=== PATIENT | female | born 1945 | race Caucasian/White ===

== ENCOUNTER → 2018-01-10 | Outpatient (CLI) | payer MEDICARE, BC ==
[~2018-01-10] MED LIST: ABILIFY10 MG PO; ALBUTEROL2.5 MG/0.1 INH; ASPIR 8181 MG PO; CALCIUM 500 +1 EAC5 PO; CLARITIN10 M2 PO; CLONAZEPAM 0.50.5 M1 PO; CLONAZEPAM0.125 MG PO; DESYREL50 MG PO; EFFEXOR25 MG PO; FOSAMAX 70 MG T70 MG PO; FOSAMAX5 MG PO; NEURONTIN 300300 M1 PO; PREMARIN0.3 MG TOP; RELAFEN500 MG PO; RISPERDAL0.5 MG PO; TRAZODONE HCL100 MG PO; VICODIN 5-5001 EACH PO; WELLBUTRIN 100100 MG PO
[2018-01-10 10:11] LABS: CREATININE 0.9 mg/dL (0.6-1.3)
== END ==
LOC: M.CT 01-05 08:30 → M.LAB 09:49 → M.CT 11:00
PROVIDERS: Registered Nurse Diabetes Educator
DX: Z12.31 Encounter for screening mammogram for malignant neoplasm of breast (principal); G31.9 Degenerative disease of nervous system, unspecified; G43.109 Migraine with aura, not intractable, without status migrainosus; I63.532 Cerebral infarction due to unspecified occlusion or stenosis of left posterior cerebral artery; R20.2 Paresthesia of skin; R20.0 Anesthesia of skin; Z98.890 Other specified postprocedural states

== ENCOUNTER → 2018-01-26 | Outpatient (CLI) | payer MEDICARE, BC | LOC: M.ULTRA 01-22 10:30 | DX: R92.8 Other abnormal and inconclusive findings on diagnostic imaging of breast (principal); N63.21 Unspecified lump in the left breast, upper outer quadrant; N60.02 Solitary cyst of left breast ==

== ENCOUNTER → 2018-07-19 | Outpatient (CLI) | payer MEDICARE, BC | LOC: M.RAD 10:20 | DX: Z09 Encounter for follow-up examination after completed treatment for conditions other than malignant neoplasm (principal); N64.89 Other specified disorders of breast; Z88.8 Allergy status to other drugs, medicaments and biological substances ==

== ENCOUNTER → 2019-03-07 | Outpatient (CLI) | payer MEDICARE, BC | LOC: M.RAD 03-01 11:40 | DX: Z12.31 Encounter for screening mammogram for malignant neoplasm of breast (principal); M81.0 Age-related osteoporosis without current pathological fracture ==

== ENCOUNTER → 2019-03-21 | Outpatient (CLI) | payer MEDICARE, BC | LOC: M.ULTRA 10:59 | DX: N60.01 Solitary cyst of right breast (principal); R92.2 Inconclusive mammogram ==

== ENCOUNTER → 2020-12-28 | Outpatient (CLI) | payer OTHER | LOC: M.RAD 08:42 | PROVIDERS: ATTEND Registered Nurse Diabetes Educator | DX: Z12.31 Encounter for screening mammogram for malignant neoplasm of breast (principal) ==

== ENCOUNTER → 2021-04-08 | Outpatient (CLI) | payer OTHER | LOC: M.ULTRA 09:46 | PROVIDERS: ATTEND Registered Nurse Diabetes Educator | DX: K76.0 Fatty (change of) liver, not elsewhere classified (principal); N13.39 Other hydronephrosis; R19.7 Diarrhea, unspecified ==